=== PATIENT | female | born 1990 | race Caucasian/White ===

== ENCOUNTER → 2017-12-12 | Outpatient (CLI) | payer MEDICAID ==
--- NOTE | 2017-12-12 16:06 | EKG ---
FACILITY: [facility] PATIENT NAME: TOSHA BRITO : [id number] MR: [id number] V: [id number] EXAM DATE: ORDERING PHYSICIAN: VERONICA ERICKSON TECHNOLOGIST: ANGIE Guzmán Reason : ASD REPAIR A CHIL Blood Pressure : / mmHG Vent. Rate : 071 BPM Atrial Rate : 071 BPM P-R Int : 152 ms QRS Dur : 084 ms QT Int : 434 ms P-R-T Axes : 004 042 000 degrees QTc Int : 471 ms Sinus rhythm Nonspecific T wave findings No previous ECGs available Confirmed by ELIU GEIGER ([id number]) on 12/12/2017 5:14:37 PM Referred By: GEORGINA Confirmed By:ELIU GEIGER
--- NOTE | 2017-12-13 14:45 | RADIOLOGY IMAGING REPORT ---
FACILITY: [facility] [place] PATIENT NAME: TOSHA BRITO : [id number] MR: [id number] V: [id number] EXAM DATE: ORDERING PHYSICIAN: VERONICA ERICKSON TECHNOLOGIST: Barbara Hunter EXAMINATION:TWO-DIMENSIONAL ECHOCARDIOGRAPH REASON:17 WEEKS / HISTORY OF ASD REPAIR AT 1 YEAR OLD. 2D Measurements (normal values in centimeters) LV endLV endRV endVent.LV PostAorticLeftPercent DiastolicSystolicDiastolicSeptumWallRootAtriumShortening (3.5-5.7)(0.9-2.6)(0.6-1.1)(0.6-1.1)(2.0-3.7)(1.9-4.0)(25-35%) [id number]% STROKE VOLUME: 56.5ml ESTIMATED EJECTION FRACTION: 65% PARASTERNAL LONG AXIS: Overall left ventricular systolic function again appears to be normal and chamber sizes also appear to be normal. Aortic valve and mitral valve both appear to open normally. Color examination of the valves reveals a trace of mitral insufficiency in this view. Also a trace of tricuspid insufficiency is noted. PARASTERNAL SHORT AXIS: Again overall left ventricular systolic function appears to be normal. No specific wall motion abnormalities are noted. Color examination of the valves reveals a trace of pulmonic insufficiency and a trace of tricuspid insufficiency. APICAL FOUR AND TWO CHAMBER: Normal left ventricular ejection fraction, normal chamber sizes. Aortic valve area measured within normal range at 1.8cm2 with a mean pressure grain across the valve of 7mm Hg with a dimensionless index of 0.7. Trace of mitral and tricuspid insufficiency is noted. The mitral valve area is also measured within normal range 3.5cm2. The left atrial and right atrial volumes are measured with normal ranges at 16 and 13ml/m2 respectively. IVC is normal in size. SUBCOSTAL VIEW: No pericardial effusion was noted. No atrioseptal or ventriculoseptal defects were appreciated. Doppler examination of the mitral valve in diastole does reveal a normal pattern. OVERALL IMPRESSION: 1. Normal left ventricular systolic function. Estimated ejection fraction of 65% with normal diastolic function. 2. Chamber sizes are normal. 3. A trace of mitral, tricuspid and pulmonic insufficiency with normal right ventricular systolic pressures of 27mm Hg. 4. A trileaflet aortic valve with no abnormalities noted. 5. No atrioseptal of or ventriculoseptal defects were noted. Dictated by: Raymond Contreras M.D. on 12/12/2017 at 19:55 Transcribed by: GIBSON on 12/13/2017 at 14:00 Approved by: Raymond Contreras M.D. on 12/13/2017 at 14:44 [facility]
== END ==
LOC: US 14:04
PROVIDERS: ATTEND Obstetrics & Gynecology
DX: I34.0 Nonrheumatic mitral (valve) insufficiency (principal); I07.1 Rheumatic tricuspid insufficiency; I37.1 Nonrheumatic pulmonary valve insufficiency; O99.112 Other diseases of the blood and blood-forming organs and certain disorders involving the immune mechanism complicating pregnancy, second trimester
CPT/HCPCS: 93005; 93306

== ENCOUNTER 2018-02-21 01:08 | Observation (INO) | payer MEDICAID ==
--- NOTE | 2018-02-21 01:14 | ER Report ---
History and Physical Time Seen By MD: 01:13 HPI/ROS CHIEF COMPLAINT: Diarrhea, lower abdominal pain, 27 weeks HISTORY OF PRESENT ILLNESS: 27-year-old female at 27 weeks began having diarrhea and lower abdominal cramps starting at 3 PM yesterday. She had vomiting and Zofran at home which was prescribed by her PROFESSOR OF THEATER. Patient works at a daycare. She's been exposed to some kids with diarrhea but not recently. She denies recent travel or exposure to ill contacts. She thinks she might be having low-grade fevers. She notes no vaginal bleeding or spotting. REVIEW OF SYSTEMS: Respiratory: No cough, no dyspnea. Cardiovascular: No chest pain, no palpitations. Gastrointestinal: As above Musculoskeletal: No back pain. Allergies: Coded Allergies: Penicillins (Verified Allergy, Intermediate, 02/21/18) amoxicillin (Verified Allergy, Intermediate, 02/21/18) clavulanic acid (Verified Allergy, Intermediate, 02/21/18) Home Meds Reported Medications Vits W-Ca,Fe,Fa(<1MG) ( VITAMINS) 1 Each Tablet, 1 EACH PO DAILY, TAB 02/21/18 Reviewed Nurses Notes: Yes Old Medical Records Reviewed: Yes Constitutional Vital Sign - Last 24 Hours 02/21/18 02/21/18 02/21/18 02/21/18 01:15 01:23 01:30 01:38 Temp 98.4 Pulse 100 101 94 Resp 24 B/P (MAP) 114/77 107/64 (78) Pulse Ox 98 95 O2 Delivery Room Air 02/21/18 01:53 Pulse ??? Pulse Ox 95 Physical Exam Vital signs stable, afebrile, heart tones documented at 148 General Appearance: The patient is alert, has no immediate need for airway protection and no current signs of toxicity. Mild distress, skin warm, dry, pink HEENT: Pupils equal and round no injection. Oropharynx without redness or exudate, mucous. Membranes are moist Respiratory: Chest is non tender, lungs are clear to auscultation. Cardiac: regular rate and rhythm Gastrointestinal: Abdomen is soft, gravid, consistent with dates and non tender , no masses, bowel sounds normal. Musculoskeletal: Neck: Neck is supple and non tender. No lymphadenopathy Extremities have full range of motion and are non tender. Skin: No rashes or lesions. DIFFERENTIAL DIAGNOSIS: After history and physical exam differential diagnosis was considered for abdominal pain including but not limited to appendicitis, cholecystitis, gastritis, gastroenteritis, food poisoning, viral syndrome, labor and urinary tract infection. Medical Decision Making Data Points Result Diagram: 02/21/18 0135 02/21/18 0135 Laboratory Hematology Test 02/21/18 01:12 02/21/18 01:35 Urine Color Yellow Urine Clarity Slightly-cloudy Urine pH 5.0 pH (4.8-9.5) Urine Specific [place] 1.027 Urine Protein Negative mg/dL (NEGATIVE) Urine Glucose (UA) 50 mg/dL (NEGATIVE) Urine Ketones 20 mg/dL (NEGATIVE) Urine Blood Negative (NEGATIVE) Urine Nitrite Negative (NEGATIVE) Urine Bilirubin Negative (NEGATIVE) Urine Urobilinogen Negative mg/dL (0.2-1.9) Urine Leukocyte Esterase Trace (NEGATIVE) Urine RBC 1 /HPF (0-2/HPF) Urine WBC 12 /HPF (0-5/HPF) Urine Squamous Epithelial Cells Many /LPF (</=FEW) Urine Bacteria Few /HPF (NONE-FEW) Urine Hyaline Casts Few /LPF (NONE-FEW) Urine Mucus Few /HPF (NONE-FEW) Red Blood Count 4.65 M/uL (4.17-5.56) Mean Corpuscular Volume 89.9 fL (80.0-96.0) Mean Corpuscular Hemoglobin 31.3 pg (26.0-33.0) Mean Corpuscular Hemoglobin Concent 34.8 g/dL (32.0-36.0) Red Cell Distribution Width 13.0 % (11.5-14.5) Mean Platelet Volume 8.1 fL (7.2-11.1) Neutrophils (%) (Auto) 80.7 % (39.4-72.5) Lymphocytes (%) (Auto) 10.9 % (17.6-49.6) Monocytes (%) (Auto) 7.6 % (4.1-12.4) Eosinophils (%) (Auto) 0.4 % (0.4-6.7) Basophils (%) (Auto) 0.4 % (0.3-1.4) Nucleated RBC Relative Count (auto) 0.0 /100WBC Neutrophils # (Auto) 5.3 K/uL (2.0-7.4) Lymphocytes # (Auto) 0.7 K/uL (1.3-3.6) Monocytes # (Auto) 0.5 K/uL (0.3-1.0) Eosinophils # (Auto) 0.0 K/uL (0.0-0.5) Basophils # (Auto) 0.0 K/uL (0.0-0.1) Nucleated RBC Absolute Count (auto) 0.00 K/uL Sodium Level 135 mmol/L (137-145) Potassium Level 3.3 mmol/L (3.5-5.0) Chloride Level 103 mmol/L (98-107) Carbon Dioxide Level 19 mmol/L (22-31) Blood Urea Nitrogen 9 mg/dl (7-18) Creatinine 0.50 mg/dl (0.52-1.04) Glomerular Filtration Rate Calc > 60.0 Random Glucose 124 mg/dl (75-110) Calcium Level 9.2 mg/dl (8.4-10.2) Total Bilirubin 0.3 mg/dl (0.2-1.3) Aspartate Amino Transf (AST/SGOT) 26 U/L (0-35) Alanine Aminotransferase (ALT/SGPT) 21 U/L (0-56) Alkaline Phosphatase 73 U/L (0-126) Total Protein 6.7 g/dl (6.3-8.2) Albumin 3.4 g/dl (3.5-5.0) Amylase Level 112 U/L (0-110) Lipase 191 U/L (23-300) Chemistry Test 02/21/18 01:12 02/21/18 01:35 Urine Color Yellow Urine Clarity Slightly-cloudy Urine pH 5.0 pH (4.8-9.5) Urine Specific [place] 1.027 Urine Protein Negative mg/dL (NEGATIVE) Urine Glucose (UA) 50 mg/dL (NEGATIVE) Urine Ketones 20 mg/dL (NEGATIVE) Urine Blood Negative (NEGATIVE) Urine Nitrite Negative (NEGATIVE) Urine Bilirubin Negative (NEGATIVE) Urine Urobilinogen Negative mg/dL (0.2-1.9) Urine Leukocyte Esterase Trace (NEGATIVE) Urine RBC 1 /HPF (0-2/HPF) Urine WBC 12 /HPF (0-5/HPF) Urine Squamous Epithelial Cells Many /LPF (</=FEW) Urine Bacteria Few /HPF (NONE-FEW) Urine Hyaline Casts Few /LPF (NONE-FEW) Urine Mucus Few /HPF (NONE-FEW) White Blood Count 6.5 k/uL (4.5-11.0) Red Blood Count 4.65 M/uL (4.17-5.56) Hemoglobin 14.6 g/dL (12.0-16.0) Hematocrit 41.8 % (34.0-47.0) Mean Corpuscular Volume 89.9 fL (80.0-96.0) Mean Corpuscular Hemoglobin 31.3 pg (26.0-33.0) Mean Corpuscular Hemoglobin Concent 34.8 g/dL (32.0-36.0) Red Cell Distribution Width 13.0 % (11.5-14.5) Platelet Count 110 K/uL (150-450) Mean Platelet Volume 8.1 fL (7.2-11.1) Neutrophils (%) (Auto) 80.7 % (39.4-72.5) Lymphocytes (%) (Auto) 10.9 % (17.6-49.6) Monocytes (%) (Auto) 7.6 % (4.1-12.4) Eosinophils (%) (Auto) 0.4 % (0.4-6.7) Basophils (%) (Auto) 0.4 % (0.3-1.4) Nucleated RBC Relative Count (auto) 0.0 /100WBC Neutrophils # (Auto) 5.3 K/uL (2.0-7.4) Lymphocytes # (Auto) 0.7 K/uL (1.3-3.6) Monocytes # (Auto) 0.5 K/uL (0.3-1.0) Eosinophils # (Auto) 0.0 K/uL (0.0-0.5) Basophils # (Auto) 0.0 K/uL (0.0-0.1) Nucleated RBC Absolute Count (auto) 0.00 K/uL Glomerular Filtration Rate Calc > 60.0 Calcium Level 9.2 mg/dl (8.4-10.2) Total Bilirubin 0.3 mg/dl (0.2-1.3) Aspartate Amino Transf (AST/SGOT) 26 U/L (0-35) Alanine Aminotransferase (ALT/SGPT) 21 U/L (0-56) Alkaline Phosphatase 73 U/L (0-126) Total Protein 6.7 g/dl (6.3-8.2) Albumin 3.4 g/dl (3.5-5.0) Amylase Level 112 U/L (0-110) Lipase 191 U/L (23-300) Urinalysis Test 02/21/18 01:12 Urine Color Yellow Urine Clarity Slightly-cloudy Urine pH 5.0 pH (4.8-9.5) Urine Specific [place] 1.027 Urine Protein Negative mg/dL (NEGATIVE) Urine Glucose (UA) 50 mg/dL (NEGATIVE) Urine Ketones 20 mg/dL (NEGATIVE) Urine Blood Negative (NEGATIVE) Urine Nitrite Negative (NEGATIVE) Urine Bilirubin Negative (NEGATIVE) Urine Urobilinogen Negative mg/dL (0.2-1.9) Urine Leukocyte Esterase Trace (NEGATIVE) Urine RBC 1 /HPF (0-2/HPF) Urine WBC 12 /HPF (0-5/HPF) Urine Squamous Epithelial Cells Many /LPF (</=FEW) Urine Bacteria Few /HPF (NONE-FEW) Urine Hyaline Casts Few /LPF (NONE-FEW) Urine Mucus Few /HPF (NONE-FEW) ED Course/Re-evaluation Clinical Indication for ER IV: Hydration, IV Access ED Course Patient was admitted to an examination room. H&P was done. The differential diagnoses was considered.. On clinical examination. Patient's having lower abdominal cramps which could be labor. Patient's diagnostic laboratory studies are unremarkable. Her urinalysis shows a few white blood cells, but I doubt to urinary tract infection. My suspicion is patient has viral gastroenteritis. Patient will be transferred up to labor and delivery for monitoring by labor and delivery team. Decision to Disposition Date: Feb 21, 2018 Decision to Disposition Time: 01:55 Depart Departure Latest Vital Signs Vital Signs Date Time Temp Pulse Resp B/P (MAP) Pulse Ox O2 Delivery O2 Flow Rate FiO2 02/21/18 01:53 ??? 95 02/21/18 01:30 107/64 (78) 02/21/18 01:15 98.4 24 Room Air Impression: Primary Impression: Vomiting and diarrhea Additional Impressions: Lower abdominal pain 27 weeks gestation of Condition: Improved Disposition: Admitted from ER Problem Qualifiers LI ROSE DO Feb 21, 2018 01:14
[2018-02-21] MEDS ORDERED: NS(*) 0.9% 1000 ML BAG 1,000 ML IV ONE (01:23)
[2018-02-21] MEDS ORDERED: fentaNYL CITR 100 MCG/2 ML AMP IVP ONE (01:25)
[2018-02-21] MEDS ORDERED: ONDANSETRON 4 MG/2 ML VIAL IVP ONE (01:25)
[2018-02-21] MEDS ORDERED: PREN-127 PO (01:26)
[2018-02-21 01:46] LABS: PLATELET COUNT, AUTOMATED 110 K/uL (150-450)
[2018-02-21] MEDS ORDERED: LR(*) 1000 ML BAG 1,000 ML IV PRN (02:40)
[2018-02-21] MEDS ORDERED: ACETA/BUTAL/CAFF 325/50/40 TAB PO PRN (02:40)
[2018-02-21] MEDS ORDERED: LOPERAMIDE HCL 2 MG CAP PO ONE (02:40)
[2018-02-21 05:08] VITALS: BP 111/67
== END 2018-02-21 05:45 | disposition home or self-care (01) ==
LOC: ER 01:24 → OB 01:59
PROVIDERS: ADMIT Obstetrics & Gynecology; ATTEND Obstetrics & Gynecology
DX: O26.892 Other specified pregnancy related conditions, second trimester (principal); R19.7 Diarrhea, unspecified; R11.10 Vomiting, unspecified; Z3A.27 27 weeks gestation of pregnancy
CPT/HCPCS: 59025; 81001; 82150; 83690; 85025; 96374; 99283; G0378; J2405; J7030; J7120; 82040; 82247; 82310; 82374; 82435; 82565; 82947; 84075; 84132; 84155; 84295; 84450; 84460; 84520

== ENCOUNTER 2018-05-05 12:01 | Outpatient (CLI) | payer MEDICAID ==
[~2018-05-05 12:01] MED LIST: PREN-127 PO
[2018-05-05 13:00] VITALS: BP 125/79
[2018-05-07 19:48] VITALS: Wt 64.9 kg
== END 2018-05-05 12:44 | disposition home or self-care (01) ==
LOC: L&D 12:01 → UNDOADMOB 12:01 → OB 12:01 → UNDODISOB 12:44 → L&D 12:44 → EDSTATUS 05-08 10:58
PROVIDERS: ATTEND Obstetrics & Gynecology
DX: O36.8130 Decreased fetal movements, third trimester, not applicable or unspecified (principal); Z3A.38 38 weeks gestation of pregnancy
CPT/HCPCS: 59025; G0463; 99213; G0378; G0379

== ENCOUNTER 2018-05-07 19:11 | Inpatient (IN) | payer MEDICAID ==
[~2018-05-07] VITALS: Ht 160 cm; Wt 69.4 kg
[2018-05-07] MEDS ORDERED: OXYTOCIN 30 UNIT/D5LR 500 ML 500 ML IV PRN (19:14)
[2018-05-07] MEDS ORDERED: FAMOTIDINE(*) 20MG/50ML PREMIX 50 ML IVPB PRN (19:14)
[2018-05-07] MEDS ORDERED: METOCLOPRAMIDE 10 MG/2 ML SDV IVP PRN (19:15)
[2018-05-07] MEDS ORDERED: ACETAMINOPHEN 500 MG TAB PO PRN (19:15)
[2018-05-07] MEDS ORDERED: cefOXitin/DEX(*) 2GM/50ML PREM 50 ML IVPB PRN (19:15)
[2018-05-07] MEDS ORDERED: ZOLPIDEM TARTRATE 5 MG TAB PO PRN (19:15)
[2018-05-07] MEDS ORDERED: LIDOCAINE 1% LOCAL 300 MG/30ML INJ PRN (19:15)
[2018-05-07] MEDS ORDERED: MISOPROSTOL 25 MCG CAP PV PRN (19:15)
[2018-05-07] MEDS ORDERED: TERBUTALINE SULF 1 MG/ML VIAL SUBQ PRN (19:15)
[2018-05-07] MEDS ORDERED: DINOPROSTONE 10 MG INSERT PV ONE (19:15)
[2018-05-07] MEDS ORDERED: ONDANSETRON 4 MG/2 ML VIAL IVP PRN (19:15)
[2018-05-07 19:28] VITALS: BP 158/77
[2018-05-07 19:48] VITALS: BP_SYST 79; Ht 160 cm; Wt 69.4 kg
[2018-05-07 20:20] LABS: PLATELET COUNT, AUTOMATED 126 K/uL (150-450)
[2018-05-07] MEDS ORDERED: CLINDAMYCIN(*) 900 MG/NS 50 ML 50 ML IVPB PRN (20:35)
[2018-05-08] MEDS: LR(*) 1000 ML BAG 1,000 ML IV PRN ×2 (01:51→12:30)
[2018-05-08] MEDS ORDERED: OXYTOCIN 30 UNIT/D5LR 500 ML 500 ML IV PRN ×2 (02:00→06:17)
[2018-05-08] MEDS ORDERED: BUPIVACAINE 0.25% MPF INJ EPI PRN (02:35)
[2018-05-08] MEDS ORDERED: fentaNYL CITR 100 MCG/2 ML AMP IT PRN (02:35)
[2018-05-08] MEDS ORDERED: BUPIVACAINE 0.5% INJ 30ML VIAL EPI PRN (02:35)
[2018-05-08] MEDS ORDERED: LIDO/EPI 2% MPF 1:200,000 20ML EPI PRN (02:35)
[2018-05-08] MEDS ORDERED: EPIDURAL KEYS XX PRN (02:35)
[2018-05-08] MEDS ORDERED: FENTANYL/ROPIVACAINE 100 ML BAG EPI PRN (02:35)
[2018-05-08] MEDS ORDERED: LIDOCAINE/PF 2% 200MG/10ML AMP 200 MG/10 ML AMPUL EPI PRN (02:35)
[2018-05-08 06:51] LABS: PLATELET COUNT, AUTOMATED 123 K/uL (150-450)
[2018-05-08] MEDS: fentaNYL CITR 100 MCG/2 ML AMP IVP PRN ×2 (08:38→09:44)
--- NOTE | 2018-05-08 08:40 | History & Physical ---
History of Present Illness Age of Patient: 27 : 3 Para or TPAL: 0 EDC per LMP: May 20, 2018 EDC per U/S: May 23, 2018 Estimated Gestational Age: 38.2 Chief Complaint IOL History of Present Illness Presents for planned IOL last night with cervical ripening. She was 1 cm in office on the but when presented last night was found to be 5 cm. IOL planned for asymmetric IUGR with overall growth in thew 10%ile recently. Good ROHAN and dopplers and testing has been reassuring. Once here her BP h as been mildly elevated but no symptoms of pre-eclampsia. Past Medical, Surgical, Family and Obstetric Histories reviewed. Please see ACOG chart. History Allergies: Coded Allergies: Penicillins (Verified Allergy, Intermediate, 02/21/18) amoxicillin (Verified Allergy, Intermediate, 02/21/18) clavulanic acid (Verified Allergy, Intermediate, 02/21/18) Med Rec Home Meds Reported Medications Vits W-Ca,Fe,Fa(<1MG) ( VITAMINS) 1 Each Tablet, 1 EACH PO DAILY, TAB 02/21/18 Review of Systems All Systems Reviewed/Normal: Yes, Except as Noted Exam General Exam Vital Signs Vital Signs Date Time Temp Pulse Resp B/P (MAP) Pulse Ox O2 Delivery O2 Flow Rate FiO2 05/07/18 19:48 99.1 79 20 79/ Room Air General Apperance: Alert/Awake/No Acute Distress Neuro: No Gross deficits Eyes: Normal Extraocular Movement & Vison Cardiovascular: Regular Rate and Rhythm Respiratory: No Respiratory Distress Abdomen: Soft, Non-Tender, Non-Distended, Gravid - Non-Tender Extremities: No Cyanosis,Clubbing or Edema Integumentary: Skin Intact without Lesions or Rash Psychological: Alert & Oriented X3, Appropriate Mood & Affect Vaginal Discharge/Fluid?: Bloody Show, Clear Fluid (on amniotomy) Cervical Dialation: 7 Cervical Effacement (%): 100 Cervical Consistency: Soft Cervical Position: Anterior Station: -1 Presentation: Vertex Fetus Heart Tones: 120 Heart Tone Variabilty: Moderate FHT Accelerations: 15X15 FHT Category: I Medical Decision Making Data Points Result Diagram: 05/08/18 0630 05/08/18 0630 Hematology Test 05/07/18 00:00 05/07/18 20:00 05/08/18 06:30 HIV (1&2) Antibody Negative (NEGATIVE) Urine Color Yellow Urine Clarity Clear Urine pH 5.0 pH (4.8-9.5) Urine Specific [place] 1.029 Urine Protein 100 mg/dL (NEGATIVE) Urine Glucose (UA) Negative mg/dL (NEGATIVE) Urine Ketones Trace mg/dL (NEGATIVE) Urine Blood Negative (NEGATIVE) Urine Nitrite Negative (NEGATIVE) Urine Bilirubin Negative (NEGATIVE) Urine Urobilinogen 2.0 mg/dL (0.2-1.9) Urine Leukocyte Esterase Negative (NEGATIVE) Urine RBC <1 /HPF (0-2/HPF) Urine WBC 2 /HPF (0-5/HPF) Urine Squamous Epithelial Cells Many /LPF (</=FEW) Urine Bacteria Few /HPF (NONE-FEW) Urine Mucus Few /HPF (NONE-FEW) Urine Random Creatinine 232.5 mg/dl Urine Random Total Protein 19 mg/dl (<11) Red Blood Count 4.27 M/uL (4.17-5.56) Mean Corpuscular Volume 92.3 fL (80.0-96.0) Mean Corpuscular Hemoglobin 31.5 pg (26.0-33.0) Mean Corpuscular Hemoglobin Concent 34.1 g/dL (32.0-36.0) Red Cell Distribution Width 12.8 % (11.5-14.5) Mean Platelet Volume 9.5 fL (7.2-11.1) Neutrophils (%) (Auto) 68.8 % (39.4-72.5) Lymphocytes (%) (Auto) 20.2 % (17.6-49.6) Monocytes (%) (Auto) 10.0 % (4.1-12.4) Eosinophils (%) (Auto) 0.6 % (0.4-6.7) Basophils (%) (Auto) 0.4 % (0.3-1.4) Nucleated RBC Relative Count (auto) 0.1 /100WBC Neutrophils # (Auto) 6.3 K/uL (2.0-7.4) Lymphocytes # (Auto) 1.8 K/uL (1.3-3.6) Monocytes # (Auto) 0.9 K/uL (0.3-1.0) Eosinophils # (Auto) 0.1 K/uL (0.0-0.5) Basophils # (Auto) 0.0 K/uL (0.0-0.1) Nucleated RBC Absolute Count (auto) 0.01 K/uL Sodium Level 134 mmol/L (137-145) Potassium Level 3.5 mmol/L (3.5-5.0) Chloride Level 103 mmol/L (98-107) Carbon Dioxide Level 24 mmol/L (22-31) Blood Urea Nitrogen 10 mg/dl (7-18) Creatinine 0.50 mg/dl (0.52-1.04) Glomerular Filtration Rate Calc > 60.0 Random Glucose 73 mg/dl (75-110) Uric Acid 5.2 mg/dl (2.5-7.5) Calcium Level 8.5 mg/dl (8.4-10.2) Total Bilirubin 0.2 mg/dl (0.2-1.3) Aspartate Amino Transf (AST/SGOT) 34 U/L (0-35) Alanine Aminotransferase (ALT/SGPT) 50 U/L (0-56) Alkaline Phosphatase 114 U/L (0-126) Lactate Dehydrogenase 392 U/L (0-590) Total Protein 5.6 g/dl (6.3-8.2) Albumin 2.9 g/dl (3.5-5.0) Chemistry Test 05/07/18 00:00 05/07/18 20:00 05/08/18 06:30 HIV (1&2) Antibody Negative (NEGATIVE) Urine Color Yellow Urine Clarity Clear Urine pH 5.0 pH (4.8-9.5) Urine Specific [place] 1.029 Urine Protein 100 mg/dL (NEGATIVE) Urine Glucose (UA) Negative mg/dL (NEGATIVE) Urine Ketones Trace mg/dL (NEGATIVE) Urine Blood Negative (NEGATIVE) Urine Nitrite Negative (NEGATIVE) Urine Bilirubin Negative (NEGATIVE) Urine Urobilinogen 2.0 mg/dL (0.2-1.9) Urine Leukocyte Esterase Negative (NEGATIVE) Urine RBC <1 /HPF (0-2/HPF) Urine WBC 2 /HPF (0-5/HPF) Urine Squamous Epithelial Cells Many /LPF (</=FEW) Urine Bacteria Few /HPF (NONE-FEW) Urine Mucus Few /HPF (NONE-FEW) Urine Random Creatinine 232.5 mg/dl Urine Random Total Protein 19 mg/dl (<11) White Blood Count 9.1 k/uL (4.5-11.0) Red Blood Count 4.27 M/uL (4.17-5.56) Hemoglobin 13.5 g/dL (12.0-16.0) Hematocrit 39.5 % (34.0-47.0) Mean Corpuscular Volume 92.3 fL (80.0-96.0) Mean Corpuscular Hemoglobin 31.5 pg (26.0-33.0) Mean Corpuscular Hemoglobin Concent 34.1 g/dL (32.0-36.0) Red Cell Distribution Width 12.8 % (11.5-14.5) Platelet Count 123 K/uL (150-450) Mean Platelet Volume 9.5 fL (7.2-11.1) Neutrophils (%) (Auto) 68.8 % (39.4-72.5) Lymphocytes (%) (Auto) 20.2 % (17.6-49.6) Monocytes (%) (Auto) 10.0 % (4.1-12.4) Eosinophils (%) (Auto) 0.6 % (0.4-6.7) Basophils (%) (Auto) 0.4 % (0.3-1.4) Nucleated RBC Relative Count (auto) 0.1 /100WBC Neutrophils # (Auto) 6.3 K/uL (2.0-7.4) Lymphocytes # (Auto) 1.8 K/uL (1.3-3.6) Monocytes # (Auto) 0.9 K/uL (0.3-1.0) Eosinophils # (Auto) 0.1 K/uL (0.0-0.5) Basophils # (Auto) 0.0 K/uL (0.0-0.1) Nucleated RBC Absolute Count (auto) 0.01 K/uL Glomerular Filtration Rate Calc > 60.0 Uric Acid 5.2 mg/dl (2.5-7.5) Calcium Level 8.5 mg/dl (8.4-10.2) Total Bilirubin 0.2 mg/dl (0.2-1.3) Aspartate Amino Transf (AST/SGOT) 34 U/L (0-35) Alanine Aminotransferase (ALT/SGPT) 50 U/L (0-56) Alkaline Phosphatase 114 U/L (0-126) Lactate Dehydrogenase 392 U/L (0-590) Total Protein 5.6 g/dl (6.3-8.2) Albumin 2.9 g/dl (3.5-5.0) Urinalysis Test 05/07/18 20:00 Urine Color Yellow Urine Clarity Clear Urine pH 5.0 pH (4.8-9.5) Urine Specific [place] 1.029 Urine Protein 100 mg/dL (NEGATIVE) Urine Glucose (UA) Negative mg/dL (NEGATIVE) Urine Ketones Trace mg/dL (NEGATIVE) Urine Blood Negative (NEGATIVE) Urine Nitrite Negative (NEGATIVE) Urine Bilirubin Negative (NEGATIVE) Urine Urobilinogen 2.0 mg/dL (0.2-1.9) Urine Leukocyte Esterase Negative (NEGATIVE) Urine RBC <1 /HPF (0-2/HPF) Urine WBC 2 /HPF (0-5/HPF) Urine Squamous Epithelial Cells Many /LPF (</=FEW) Urine Bacteria Few /HPF (NONE-FEW) Urine Mucus Few /HPF (NONE-FEW) Urine Random Creatinine 232.5 mg/dl Urine Random Total Protein 19 mg/dl (<11) VTE Prophylasis: Adult Deep Vein Thrombosis/Pulmonary: No Pharmacological Contraindicati: Pt at Low Risk for VTE Mechanical Contraindications: Pt at Low Risk for VTE Assessment and Plan RV MECHANIC Plan: Routine Labor/Induct Care Problems: (1) IUGR (intrauterine growth restriction) affecting care of mother Assessment & Plan: Proceed with IOL as planned. Fortunately she is already in early labor and will augment as needed. AROM done with clear fluid noted. Will monitor her labs and symptoms but so far is early and mild. No magnesium needed so far. (2) 38 weeks gestation of (3) Pre-eclampsia, mild to moderate, third trimester Problem Qualifiers (1) IUGR (intrauterine growth restriction) affecting care of mother: Fetus number: single or unspecified fetus Trimester: third trimester Qualified Codes: O36.5930 - Maternal care for other known or suspected poor growth, third trimester, not applicable or unspecified VERONICA ERICKSON MD May 08, 2018 08:39
[2018-05-08] MEDS ORDERED: KETOROLAC 30 MG/ML VIAL IVP ONE (11:55)
--- NOTE | 2018-05-08 11:58 | OB Delivery Note ---
Delivery Note Vaginal Delivery Type: Spont. Vaginal Delivery Delivery Date: May 08, 2018 Delivery Time: 11:20 Estimated Gestational Age(wks): 38.2 Delivery Anesthesia: Local Sex: Female Infant Weight (gms): 2[address] [place] Apgars: 1 Minute (8), 5 Minute (9) Repair Needed: Laceration, 1st Degree Estimated Blood Loss: 300 Notes: IOL due to known IUGR. Presented on 05/07 for cervical ripening but had advanced dilation at 5 cm. Progressed with Pitocin augmentation to 6 cm by 0600 and 7 cm by 0800, 8cm by 1032 and complete at 1100. Pushing spontaneously when I presented to the room. Perineum stabilized with delivery over a first degree laceration in the LACY position. Hand presented below the chin. Shoulders delivered spontaneously with a push. Placenta delivered spontaneously without problem. Repair with 2-0 Chromic without complication. Cruise Guide in Attendence: No Copies to: VERONICA ERICKSON MD ; VERONICA ERICKSON MD May 08, 2018 11:58
[2018-05-08] MEDS ORDERED: HYDROCORTISONE 2.5% CR 30GM TB PR PRN (12:00)
[2018-05-08] MEDS ORDERED: MAGNESIUM HYDROXIDE* 30ML UDCP PO PRN (12:00)
[2018-05-08] MEDS ORDERED: INFLUENZA VIRUS VAC 0.5 ML SYR IM ONLY ONE (12:00)
[2018-05-08] MEDS: APAP/HYDROCODONE 325/5 TAB PO PRN (12:16)
[2018-05-08] MEDS ORDERED: NS(*) 0.9% 1000 ML BAG 0 ML ONE (12:38)
[2018-05-08] MEDS ORDERED: MISOPROSTOL 200 MCG TAB ONE ×2 (12:38→14:29)
[2018-05-08] MEDS ORDERED: METHYLERGONOVINE MAL 0.2MG/ML ONE (12:39)
[2018-05-08] MEDS ORDERED: CARBOPROST TROMETHAM 250MCG/ML IM ONLY ONE ×2 (12:39→14:58)
[2018-05-08] MEDS ORDERED: OXYTOCIN 30 UNIT/D5LR 500 ML 500 ML ONE (12:39)
[2018-05-08 14:51] LABS: PLATELET COUNT, AUTOMATED 157 K/uL (150-450)
[2018-05-08] MEDS ORDERED: MIDAZOLAM 2 MG/2 ML VIAL ONE (14:55)
[2018-05-08] MEDS ORDERED: KETAMINE HCL-NS 50 MG/5 ML SYR IVP ONE ×3 (14:55→15:15)
[2018-05-08] MEDS ORDERED: CLINDAMYCIN 900 MG/6 ML 900 MG in NS(*) 0.9% 100 ML BAG 100 ML IVPB ONE (15:15)
--- NOTE | 2018-05-08 15:52 | OB/GYN Progress Note ---
OB Subjective Progress Notes Subjective Called back to pt room for non-resolving rectal pressure and passing heavy clots still. Pt had become vagal on the comode and had a syncopal episode. Her vitals were stable however. BP was above 100 systolic and diastolic above 70. Pulse was in the 80s. Cytotec 200 mcg given sublingual and 600 mcg given rectal ly. Hemabate called for and administered 250 mcg IM. OB Objective Physical Exam Vital Signs Date Time Temp Pulse Resp B/P (MAP) Pulse Ox O2 Delivery O2 Flow Rate FiO2 05/07/18 19:48 99.1 79 20 79/ Room Air Intake and Output 05/08/18 07:00 # Voids 3 General Appearance: Alert/Awake/No Acute Distress Neurological: No Gross deficits Eyes: Normal Extraocular Movement & Vison Respiratory: No Respiratory Distress Extremities: No Cyanosis,Clubbing or Edema Integumentary: Skin Intact without Lesions or Rash Psychological: Alert & Oriented X3, Appropriate Mood & Affect Result Diagram: 05/08/18 1441 05/08/18 0630 Assessment and Plan Problems: (1) IUGR (intrauterine growth restriction) affecting care of mother (2) 38 weeks gestation of (3) Pre-eclampsia, mild to moderate, third trimester (4) hemorrhage Assessment & Plan: Manual exam revealed uterus with large amounts of clot still within the uterus and a right vaginal hematoma that ruptured out into the v agina, now with a 5 cm sulcus tear. Pt given Ketamine and Versed IV by the anesthesia provider to assist with pain control. Pt the set back up in lithotomy position. Manual expression and exploration of uterus was performed. Large banjo curette was used to curettage the uterine mendez loosening some retained membranes and POC. These were teased out of the uterus with ring forceps. The uterus was firm on completion. No further cervical or uterine injuries were noted. The hematoma was manually expressed and evacuated of clot. Inspection revealed no active bleeders and so the vagina was repaired with 2-0 Chromic with deep locking stitches. Upon completion, scant bleeding was noted. EBL was 1500 ml for this episode. Blood was type and cross matched for 2 units. Will see how she responds over the next few hours. Problem Qualifiers (1) IUGR (intrauterine growth restriction) affecting care of mother: Fetus number: single or unspecified fetus Trimester: third trimester Qualified Codes: O36.5930 - Maternal care for other known or suspected poor growth, third trimester, not applicable or unspecified (2) hemorrhage: hemorrhage type: delayed hemorrhage Qualified Codes: O72.2 - Delayed and secondary hemorrhage VERONICA ERICKSON MD May 08, 2018 15:52
[2018-05-08] MEDS ORDERED: DIPHENOX/ATROPINE 2.5-0.025MG PO PRN (16:55)
[2018-05-08] MEDS ORDERED: DIPHENOX/ATROPINE 2.5-0.025MG PO ONE (16:55)
[2018-05-08] MEDS ORDERED: IBUPROFEN 800 MG TAB PO SCH (17:00)
--- NOTE | 2018-05-08 19:15 | OB/GYN Progress Note ---
OB Subjective Progress Notes Subjective Improved now. More alert and reports the pain/pressure in rectum has improved. Vitals stable. Bleeding light. She looks pale however. OB Objective Physical Exam Vital Signs Date Time Temp Pulse Resp B/P (MAP) Pulse Ox O2 Delivery O2 Flow Rate FiO2 05/07/18 19:48 99.1 79 20 79/ Room Air Intake and Output 05/08/18 06:59 # Voids 3 General Appearance: Alert/Awake/No Acute Distress (pale) Neurological: No Gross deficits Respiratory: No Respiratory Distress Abdomen: Soft, Non-Tender, Non-Distended Extremities: No Cyanosis,Clubbing or Edema Integumentary: Skin Intact without Lesions or Rash Psychological: Alert & Oriented X3, Appropriate Mood & Affect Result Diagram: 05/08/18 1803 05/08/18 0630 Assessment and Plan Problems: (1) IUGR (intrauterine growth restriction) affecting care of mother (2) 38 weeks gestation of (3) Pre-eclampsia, mild to moderate, third trimester (4) hemorrhage Assessment & Plan: Will let hgb settle overnight and see how it is in the morning. If symptomatic of anemia tonight, will transfuse 2 units PRBCs. Otherwise, rest in bed with arceo. Remove arceo in AM and start ambulating if tolerated. Problem Qualifiers (1) IUGR (intrauterine growth restriction) affecting care of mother: Fetus number: single or unspecified fetus Trimester: third trimester Qualified Codes: O36.5930 - Maternal care for other known or suspected poor growth, third trimester, not applicable or unspecified (2) hemorrhage: hemorrhage type: delayed hemorrhage Qualified Codes: O72.2 - Delayed and secondary hemorrhage VERONICA ERICKSON MD May 08, 2018 19:15
[2018-05-08 19:23] VITALS: BP 128/67
[2018-05-08] MEDS ORDERED: LR(*) 1000 ML BAG 2,000 ML ONE (19:38)
[2018-05-08] MEDS: DOCUSATE CALCIUM 240 MG CAP PO SCH (20:55)
[2018-05-08] MEDS: LANOLIN OINT 7 GM TUBE TP PRN (21:23)
[2018-05-08 21:50] VITALS: BP 123/63
[2018-05-09] VITALS (14 sets, daily range): BP systolic 125–146; BP diastolic 59–86
[2018-05-09] MEDS: APAP/HYDROCODONE 325/5 TAB PO PRN ×4 (00:16→21:55)
[2018-05-09] MEDS: IBUPROFEN 800 MG TAB PO SCH ×3 (02:56→18:36)
[2018-05-09] MEDS: BENZOCAINE 20% 60 ML BTL TP PRN (05:28)
[2018-05-09] MEDS: GLYCERIN/WITCH HAZEL LEAF 1 PK TP PRN (05:28)
[2018-05-09] MEDS ORDERED: NS(*) 0.9% 500 ML BAG 500 ML IV ONE (06:10)
[2018-05-09] MEDS ORDERED: diphenhydrAMINE 25 MG CAP PO ONE (06:15)
[2018-05-09] MEDS ORDERED: ACETAMINOPHEN 500 MG TAB PO ONE (06:15)
[2018-05-09] MEDS ORDERED: NS(*) 0.9% 1000 ML BAG 1,000 ML ONE (06:19)
[2018-05-09] MEDS ORDERED: diphenhydrAMINE 25 MG CAP ONE (06:28)
[2018-05-09] MEDS ORDERED: ACETAMINOPHEN 325 MG TAB ONE (06:28)
--- NOTE | 2018-05-09 07:46 | OB/GYN Progress Note ---
OB Subjective Progress Notes Subjective Hgb settling out to be too low. Has not ambulated yet. Transfusion of 3 units PRBCs initiated. Otherwise feeling ok. Pain manageable and bleeding light since corrected. Catheter in place. OB Objective Physical Exam Vital Signs Date Time Temp Pulse Resp B/P (MAP) Pulse Ox O2 Delivery O2 Flow Rate FiO2 05/09/18 07:32 98.4 75 14 138/78 05/09/18 03:03 95 Room Air 05/08/18 21:50 2.0 Intake and Output 05/09/18 07:00 Intake Total 3106 ml Output Total 1125 ml Balance 1981 ml Intake IV Total 3106 ml Output Urine Total 1125 ml # Bowel Movements 1 General Appearance: Alert/Awake/No Acute Distress (color is a lot better) Neurological: No Gross deficits Cardiovascular: Normal Rhythm & Peripheral Pulses, Regular Rate and Rhythm Respiratory: No Respiratory Distress Abdomen: Soft, Non-Tender, Non-Distended, Fundus Firm Extremities: No Cyanosis,Clubbing or Edema Integumentary: Skin Intact without Lesions or Rash Psychological: Alert & Oriented X3, Appropriate Mood & Affect Result Diagram: 05/09/18 0546 05/08/18 0630 Assessment and Plan Problems: (1) IUGR (intrauterine growth restriction) affecting care of mother Status: Resolved (2) 38 weeks gestation of (3) Pre-eclampsia, mild to moderate, third trimester (4) hemorrhage Assessment & Plan: Transfuse 3 units total today. Test ability to ambulate prior to removing catheter. Problem Qualifiers (1) IUGR (intrauterine growth restriction) affecting care of mother: Fetus number: single or unspecified fetus Trimester: third trimester Qualified Codes: O36.5930 - Maternal care for other known or suspected poor growth, third trimester, not applicable or unspecified (2) hemorrhage: hemorrhage type: delayed hemorrhage Qualified Codes: O72.2 - Delayed and secondary hemorrhage VERONICA ERICKSON MD May 09, 2018 07:46
[2018-05-09] MEDS: DOCUSATE CALCIUM 240 MG CAP PO SCH ×2 (09:00→21:00)
--- NOTE | 2018-05-09 09:43 | Anesthesia Post Eval Note ---
Anesthesia Post Eval Note stable Pt able to participate in Eval: Yes Cardiovascular Status: Satisfactory Respiratory Status: Satisfactory Pain Managment: Satisfactory PO Nausea/Vomiting: Satisfactory Temperature Management: Satisfactory Mental Status: Satisfactory Post-Op Hydration Status: Satisfactory Anesthesia Tolerance: post anesthesia note for Mac/IV sedation yesterday. She needed sedation for a post curettage and vaginal tear repair. She has received 2 units prbc and is doing well. GILBERT GARCIA CRNA May 09, 2018 09:43
[2018-05-09] MEDS ORDERED: MIDAZOLAM 2 MG/2 ML VIAL IVP ONE (11:00)
[2018-05-09] MEDS ORDERED: NS(*) 0.9% 500 ML BAG 500 ML ONE (11:20)
[2018-05-09] MEDS ORDERED: MEASLES,MUMP,RUBELLA VAC 0.5ML SUBQ ONE (12:00)
[2018-05-09] MEDS ORDERED: DIPHTH/TETANUS/ACEL. PERTUSSIS IM ONLY ONE (12:00)
[2018-05-09] MEDS ORDERED: LOR5/325 PO (17:07)
[2018-05-09] MEDS ORDERED: FERR-53 PO (17:07)
[2018-05-09] MEDS ORDERED: IBUP800T37 PO (17:07)
--- NOTE | 2018-05-09 17:07 | OB/GYN Progress Note ---
OB Subjective Progress Notes Subjective Much improved after transfusion. Still fatigued. Post transfusion labs not back yet. Pain: Mild OB Objective Physical Exam Vital Signs Date Time Temp Pulse Resp B/P (MAP) Pulse Ox O2 Delivery O2 Flow Rate FiO2 05/09/18 13:14 98.6 87 20 137/67 (90) 95 Room Air 05/08/18 21:50 2.0 Intake and Output 05/09/18 07:00 Intake Total 3106 ml Output Total 1125 ml Balance 1981 ml IV Total 3106 ml Output Urine Total 1125 ml # Bowel Movements 1 General Appearance: Alert/Awake/No Acute Distress (color is a lot better) Neurological: No Gross deficits Psychological: Alert & Oriented X3, Appropriate Mood & Affect Result Diagram: 05/09/18 0546 05/08/18 0630 Assessment and Plan Problems: (1) IUGR (intrauterine growth restriction) affecting care of mother Status: Resolved (2) 38 weeks gestation of (3) Pre-eclampsia, mild to moderate, third trimester (4) hemorrhage Assessment & Plan: Continue to monitor overnight. Will be able to remove catheter anytime she feels she can get up to the bathroom on her own. Could potentially be discharged tomorrow either to room in or to home depending on baby being ready. Problem Qualifiers (1) IUGR (intrauterine growth restriction) affecting care of mother: Fetus number: single or unspecified fetus Trimester: third trimester Qualified Codes: O36.5930 - Maternal care for other known or suspected poor growth, third trimester, not applicable or unspecified (2) hemorrhage: hemorrhage type: delayed hemorrhage Qualified Codes: O72.2 - Delayed and secondary hemorrhage VERONICA ERICKSON MD May 09, 2018 17:07
--- NOTE | 2018-05-09 17:09 | OB/GYN Discharge Summary ---
VERONICA HARRELL MD 05/09/18 1709: Discharge Summary Reason for Hosp/Final Diag: (1) IUGR (intrauterine growth restriction) affecting care of mother Status: Resolved (2) 38 weeks gestation of Status: Resolved (3) Pre-eclampsia, mild to moderate, third trimester Status: Resolved (4) hemorrhage Status: Resolved Hospital Course & Plan: Continue to monitor overnight. Will be able to remove catheter anytime she feels she can get up to the bathroom on her own. Could potentially be discharged tomorrow either to room in or to home depending on baby being ready. [facility] Vital Signs Vital Signs Date Time Temp Pulse Resp B/P (MAP) Pulse Ox O2 Delivery O2 Flow Rate FiO2 05/09/18 13:14 98.6 87 20 137/67 (90) 95 Room Air 05/08/18 21:50 2.0 Weight (Pounds): 153 Result Diagram: 05/09/1846 05/08/18629 Condition: Improved Discharge: Home, Self Senior Care Meds Active Scripts Hydrocodone Bit/Acetaminophen (HYDROCODON-ACETAMINOPHEN 5-325) 1 Each Tablet, 1- 2 EACH PO Q4H PRN for PAIN, #10 TAB 0 Refills Prov:VERONICA HARRELL MD 05/09/18 Reported Medications Vits W-Ca,Fe,Fa(<1MG) ( VITAMINS) 1 Each Tablet, 1 EACH PO DAILY, TAB 02/21/18 Follow up Referrals: WATER PROJECT MANAGER - In 6 Weeks @ [facility] with VERONICA HARRELL MD Follow up with: Dr. Harrell [phone] Follow up in: 6 wks PP or PO Discharge Diet: As Tolerates Discharge Activity: As Tolerates, No Heavy Lifting x 6 wks, No Heavy Lifting > 10lb, Pelvic Rest Copies to: VERONICA HARRELL MD ; [facility] 05/11/18 1439: Discharge Summary Reason for Hosp/Final Diag: (1) IUGR (intrauterine growth restriction) affecting care of mother Status: Resolved (2) state (3) 38 weeks gestation of Status: Resolved (4) Pre-eclampsia, mild to moderate, third trimester Status: Resolved (5) Urinary tract infection Status: Acute Result Diagram: 05/09/1846 9/11/18 0630 Condition: Improved Discharge: Home, Self Senior Care Meds Active Scripts Hydrocodone Bit/Acetaminophen (HYDROCODON-ACETAMINOPHEN 5-325) 1 Each Tablet, 1- 2 EACH PO Q4H PRN for PAIN, #10 TAB 0 Refills Prov:VERONICA HARRELL MD 05/09/18 Reported Medications Vits W-Ca,Fe,Fa(<1MG) ( VITAMINS) 1 Each Tablet, 1 EACH PO DAILY, TAB 02/21/18 Follow up Referrals: WATER PROJECT MANAGER - In 6 Weeks @ [facility] with VERONICA HARRELL MD [facility] [phone], Dr. Harrell [phone] Special Instructions: Follow-up early next week for blood pressure check and routine post at 6 weeks Copies to: VERONICA HARRELL MD ; Problem Qualifiers (1) IUGR (intrauterine growth restriction) affecting care of mother: Fetus number: single or unspecified fetus Trimester: third trimester Qualified Codes: O36.5930 - Maternal care for other known or suspected poor growth, third trimester, not applicable or unspecified (2) hemorrhage: hemorrhage type: delayed hemorrhage Qualified Codes: O72.2 - Delayed and secondary hemorrhage VERONICA HARRELL MD May 09, 2018 17:09 [facility] May 11, 2018 14:39
[2018-05-10] MEDS: IBUPROFEN 800 MG TAB PO SCH ×3 (02:51→17:56)
[2018-05-10] MEDS: APAP/HYDROCODONE 325/5 TAB PO PRN ×4 (02:51→20:46)
[2018-05-10 02:55] VITALS: BP 139/70
[2018-05-10] MEDS: DOCUSATE CALCIUM 240 MG CAP PO SCH ×2 (08:27→20:45)
[2018-05-10 08:40] VITALS: BP 155/83
[2018-05-10 11:47] VITALS: BP 129/70
--- NOTE | 2018-05-10 12:26 | OB/GYN Progress Note ---
OB Subjective Progress Notes Subjective Post day #2 s/p IOL. Patient with uterine hemorrhage yesterday, now resolved, received transfusion yesterday and H&H stable on redraw last night. Bleeding significantly improved. V[place] removed this morning, has been able to void since. Is pumping with minimal milk production at this time. Tolerating PO without nausea/vomiting. Slow to move, small infant, plans for discharge tomorrow. GI: NEG Nausea, NEG Vomiting : Voiding Well, Vaginal Bleeding, Other (improved) Pain: Mild OB Objective Physical Exam Vital Signs Date Time Temp Pulse Resp B/P (MAP) Pulse Ox O2 Delivery O2 Flow Rate FiO2 05/10/18 11:47 98.2 88 18 129/70 (89) Room Air 05/10/18 02:55 93 05/08/18 21:50 2.0 Intake and Output 05/10/18 07:00 Intake Total 1190 ml Output Total 1850 ml Balance -660 ml Intake Oral 240 ml IV Total 200 ml Blood Product 750 ml Output Urine Total 1850 ml General Appearance: Alert/Awake/No Acute Distress (color is a lot better) Neurological: No Gross deficits ENT: Normal Cardiovascular: Normal Rhythm & Peripheral Pulses Respiratory: No Respiratory Distress, Clear to Auscultation Abdomen: Soft, Non-Tender, Non-Distended, Fundus Firm (firm, 2 fingers below the ubilicus) : Normal Musculoskeletal: No Weakness/Pain Extremities: No Cyanosis,Clubbing or Edema Integumentary: Skin Intact without Lesions or Rash Psychological: Alert & Oriented X3, Appropriate Mood & Affect Result Diagram: 05/09/18 1805 05/08/18 0630 Assessment and Plan Post Day: 2 RO[address] ADVISOR Assessment: Stable ROAD ADVISOR Plan: Routine Post- Care, Discharge Home Tomorrow Problems: (1) IUGR (intrauterine growth restriction) affecting care of mother Status: Resolved (2) 38 weeks gestation of Status: Resolved (3) Pre-eclampsia, mild to moderate, third trimester Status: Resolved (4) hemorrhage (5) state Problem Qualifiers (1) IUGR (intrauterine growth restriction) affecting care of mother: Fetus number: single or unspecified fetus Trimester: third trimester Qualified Codes: O36.5930 - Maternal care for other known or suspected poor growth, third trimester, not applicable or unspecified (2) hemorrhage: hemorrhage type: delayed hemorrhage Qualified Codes: O72.2 - Delayed and secondary hemorrhage [facility] May 10, 2018 12:26
--- NOTE | 2018-05-10 12:27 | OB/GYN Progress Note ---
OB Objective Physical Exam Vital Signs Date Time Temp Pulse Resp B/P (MAP) Pulse Ox O2 Delivery O2 Flow Rate FiO2 05/10/18 02:55 98.1 81 16 139/70 (93) 93 Room Air 05/08/18 21:50 2.0 Intake and Output 05/10/18 07:00 Intake Total 1190 ml Output Total 1850 ml Balance -660 ml Intake Oral 240 ml IV Total 200 ml Blood Product 750 ml Output Urine Total 1850 ml General Appearance: Alert/Awake/No Acute Distress (color is a lot better) Neurological: No Gross deficits Psychological: Alert & Oriented X3, Appropriate Mood & Affect Result Diagram: 05/09/18 1805 05/08/18 0630 Assessment and Plan Problems: (1) IUGR (intrauterine growth restriction) affecting care of mother Status: Resolved (2) 38 weeks gestation of Status: Resolved (3) Pre-eclampsia, mild to moderate, third trimester Status: Resolved (4) hemorrhage Problem Qualifiers (1) IUGR (intrauterine growth restriction) affecting care of mother: Fetus number: single or unspecified fetus Trimester: third trimester Qualified Codes: O36.5930 - Maternal care for other known or suspected poor growth, third trimester, not applicable or unspecified (2) hemorrhage: hemorrhage type: delayed hemorrhage Qualified Codes: O7 2.2 - Delayed and secondary hemorrhage [facility] May 10, 2018 08:36
[2018-05-10 15:30] VITALS: BP 128/78
[2018-05-10 19:35] VITALS: BP 130/72
[2018-05-10] MEDS: GLYCERIN/WITCH HAZEL LEAF 1 PK TP PRN (19:50)
[2018-05-10 22:55] VITALS: BP 145/78
[2018-05-11] MEDS: APAP/HYDROCODONE 325/5 TAB PO PRN ×3 (00:37→09:05)
[2018-05-11] MEDS: IBUPROFEN 800 MG TAB PO SCH ×2 (02:08→10:33)
[2018-05-11 04:15] VITALS: BP 139/78
[2018-05-11 07:49] VITALS: BP 145/83
[2018-05-11 08:40] LABS: PLATELET COUNT, AUTOMATED 137 K/uL (150-450)
[2018-05-11 08:50] LABS: INR 0.92
[2018-05-11] MEDS: DOCUSATE CALCIUM 240 MG CAP PO SCH (09:04)
[2018-05-11 10:00] VITALS: BP 141/84
[2018-05-11 10:18] VITALS: BP 127/73
[2018-05-11 10:33] VITALS: BP 134/78
[2018-05-11] MEDS ORDERED: ACETAMINOPHEN 325 MG TAB PO PRN (10:35)
[2018-05-11] MEDS ORDERED: CEPHALEXIN MONO 500 MG CAP PO SCH (12:20)
[2018-05-11 13:22] VITALS: BP 157/74
[2018-05-11] MEDS ORDERED: CEPH500T7 PO (14:32)
--- NOTE | 2018-05-11 14:47 | OB/GYN Progress Note ---
OB Subjective Progress Notes Subjective 27 yo female post day 3 s/p IOL and post- hemorrhage. Some borderline blood pressures through the night and mild headache this morning. Labs done this morning, everything looks ok, except urine with evidence of acute UTI. Started on keflex this afternoon. GI: POS Flatus, POS Bowel Movement; NEG Nausea, NEG Vomiting : Voiding Well, Vaginal Bleeding, Scant Pain: Moderate, Tolerating PO Pain Meds OB Objective Physical Exam Vital Signs Date Time Temp Pulse Resp B/P (MAP) Pulse Ox O2 Delivery O2 Flow Rate FiO2 05/11/18 13:22 100.2 89 18 157/74 (101) 96 Room Air 05/11/18 04:16 0.5 Intake and Output 05/11/18 07:00 Intake Total 240 ml Output Total 2125 ml Balance -1885 ml Intake Oral 240 ml Output Urine Total 2125 ml # Voids 5 # Bowel Movements 1 General Appearance: Alert/Awake/No Acute Distress (color is a lot better) Neurological: No Gross deficits ENT: Normal Cardiovascular: Normal Rhythm & Peripheral Pulses Respiratory: No Respiratory Distress, Clear to Auscultation Abdomen: Soft, Non-Tender, Non-Distended, Fundus Firm (firm, 3 fingers below the ubilicus) : Normal Extremities: No Cyanosis,Clubbing or Edema Result Diagram: 05/11/1883005/11/18830 Assessment and Plan Post Day: 3 STALLION MANAGER Assessment: Stable STALLION MANAGER Plan: Routine Post- Care, Discharge Home Today (Improved throughout the day today. Will sent home with PO abx for acute UTI. Will need BP check in the office early next week.) Problems: (1) IUGR (intrauterine growth restriction) affecting care of mother Status: Resolved (2) state (3) 38 weeks gestation of Status: Resolved (4) Pre-eclampsia, mild to moderate, third trimester Status: Resolved (5) Urinary tract infection Status: Acute (6) hemorrhage Status: Resolved Problem Qualifiers (1) IUGR (intrauterine growth restriction) affecting care of mother: Fetus number: single or unspecified fetus Trimester: third trimester Qualified Codes: O36.5930 - Maternal care for other known or suspected poor growth, third trimester, not applicable or unspecified (2) hemorrhage: hemorrhage type: delayed hemorrhage Qualified Codes: O72.2 - Delayed and secondary hemorrhage [facility] May 11, 2018 14:47
[2018-05-11] MEDS: LANOLIN OINT 7 GM TUBE TP PRN (17:07)
[2018-05-11] MEDS: BENZOCAINE 20% 60 ML BTL TP PRN (17:08)
== END 2018-05-11 17:45 | disposition home or self-care (01) | DRG 768 ==
LOC: OB 19:11
PROVIDERS: ADMIT Obstetrics & Gynecology; ATTEND Obstetrics & Gynecology
PROC: 10E0XZZ Delivery of Products of Conception, External Approach (ICD-10-PCS; principal; 2018-05-08)
PROC: 0W3R3ZZ Control Bleeding in Genitourinary Tract, Percutaneous Approach (ICD-10-PCS; 2018-05-08)
PROC: 10907ZC Drainage of Amniotic Fluid, Therapeutic from Products of Conception, Via Natural or Artificial Opening (ICD-10-PCS; 2018-05-08)
PROC: 0HQ9XZZ Repair Perineum Skin, External Approach (ICD-10-PCS; 2018-05-08)
PROC: 0UQGXZZ Repair Vagina, External Approach (ICD-10-PCS; 2018-05-08)
PROC: 30233N1 Transfusion of Nonautologous Red Blood Cells into Peripheral Vein, Percutaneous Approach (ICD-10-PCS; 2018-05-08)
DX: O36.5930 Maternal care for other known or suspected poor fetal growth, third trimester, not applicable or unspecified (principal); O72.2 Delayed and secondary postpartum hemorrhage; D62 Acute posthemorrhagic anemia; O86.20 Urinary tract infection following delivery, unspecified; O70.0 First degree perineal laceration during delivery; O90.81 Anemia of the puerperium; R55 Syncope and collapse; Y92.230 Patient room in hospital as the place of occurrence of the external cause; Z88.0 Allergy status to penicillin; Z88.8 Allergy status to other drugs, medicaments and biological substances; Z3A.38 38 weeks gestation of pregnancy; Z37.0 Single live birth
CPT/HCPCS: 36415; 81001; 81003; 82040; 82247; 82310; 82374; 82435; 82565; 82570; 82947; 83615; 84075; 84132; 84155; 84156; 84295; 84450; 84460; 84520; 84550; 85014; 85018; 85025; 85027; 85049; 85379; 85384; 85610; 85730; 86703; 86850; 86900; 86901; 86920; 88307; J1885; J2250; J2590; J3010; J3490; J7030; J7040; J7050; J7120; P9016; Q0163